=== PATIENT | male | born 1975 | race Caucasian/White ===

== ENCOUNTER 2018-05-11 11:19 | Emergency (ER) | payer BC, OTHER ==
[2018-05-11] MEDS ORDERED: NA CHLORIDE 0.9% 1,000 ML ONE (11:44)
[2018-05-11 12:12] LABS: Absolute Lymphocytes (CBC) 1.2 K/uL (0.7-4.9); Absolute Monocytes 0.4 K/uL (0.1-1.3); Absolute Neutrophil 2.2 K/uL (1.8-8.0); Basophils % 0.6 % (0-1.3); Eosinophils % 1.9 % (0-4.4); Hematocrit 45.3 % (39.6-49.0); Lymphocytes % 29.4 % (15.3-44.8); MPV 8.3 fL (7.6-11.3); Monocytes % 10.7 % (3.3-12.3); RBC Red Blood Cell Count 5.59 M/uL (4.33-5.43)
[2018-05-11 12:20] LABS: Bilirubin Direct 0.1 mg/dL (0-0.2); Bilirubin Total 0.5 mg/dL (0.2-1.0); Potassium 4.2 mmol/L (3.5-5.1); Protein, Total 7.3 g/dL (6.4-8.2)
--- NOTE | 2018-05-11 12:43 | EKG ---
Test Date: 2018-05-11 Test Time: 12:01:01 Lead Producer: NAHOMY MEASUREMENT RESULTS: Intervals: Rate: 55 NH: 172 QRSD: 84 QT: 426 QTc: 407 [place]: P: 52 NH: 172 QRS: 45 T: 51 INTERPRETIVE STATEMENTS: Sinus bradycardia Otherwise normal ECG No previous ECG available for comparison Electronically Signed On 05-11-18 12:38:03 DIRECTOR OF CONSUMER MARKETING by Ken Bray
[2018-05-11] MEDS ORDERED: KETOROLAC 30 MG/ML INJ ONE (12:59)
--- NOTE | 2018-05-11 13:21 | EDPHYS ---
Physician Documentation [facility] Name: Lio Barnhart Age: 42 yrs Sex: Male : 1975 Arrival Date: 05/11/2018 Time: 11:24 Bed 15 Private MD: ED Physician Bart Sykes HPI: 05/11 11:45 This 42 yrs old Male presents to ER via Ambulatory with complaints of snw Abdominal Pain. 11:45 The patient presents with abdominal pain in the epigastric area. Onset: The snw symptoms/episode began/occurred suddenly, at 10:00, and became persistent. The symptoms do not radiate. Associated signs and symptoms: none. The symptoms are described as sqeezing. Severity of pain: At its worst the pain was moderate severe just prior to arrival. The patient has not experienced similar symptoms in the past. The patient has not recently seen a physician. takes fish oil and vit C. Pt states he has been eating healthier and has recently lost 10-15 pounds. Historical: - Allergies: 11:32 No Known Allergies; ph - Home Meds: 11:32 None [Active]; ph - PMHx: 11:32 None; ph - PSHx: 11:32 None; ph - Immunization history:: Adult Immunizations unknown. - Social history:: Smoking status: Patient/guardian denies using tobacco. - Ebola Screening: : No symptoms or risks identified at this time. ROS: 11:44 Constitutional: Negative for fever, chills, and weight loss, Eyes: Negative for injury, snw pain, redness, and discharge, ENT: Negative for injury, pain, and discharge, Neck: Negative for injury, pain, and swelling, Cardiovascular: Negative for chest pain, palpitations, and edema, Respiratory: Negative for shortness of breath, cough, wheezing, and pleuritic chest pain, Back: Negative for injury and pain, : Negative for injury, bleeding, discharge, and swelling, MS/Extremity: Negative for injury and deformity, Skin: Negative for injury, rash, and discoloration, Neuro: Negative for headache, weakness, numbness, tingling, and seizure. 11:44 Abdomen/GI: Positive for abdominal pain, Negative for nausea, vomiting, and diarrhea. Exam: 11:44 Constitutional: This is a well developed, well nourished patient who is awake, alert, snw and in no acute distress. Head/Face: Normocephalic, atraumatic. Eyes: Pupils equal round and reactive to light, extra-ocular motions intact. Lids and lashes normal. Conjunctiva and sclera are non-icteric and not injected. Cornea within normal limits. Periorbital areas with no swelling, redness, or edema. ENT: Nares patent. No nasal discharge, no septal abnormalities noted. Tympanic membranes are normal and external auditory canals are clear. Oropharynx with no redness, swelling, or masses, exudates, or evidence of obstruction, uvula midline. Mucous membranes moist. Neck: Trachea midline, no thyromegaly or masses palpated, and no cervical lymphadenopathy. Supple, full range of motion without nuchal rigidity, or vertebral point tenderness. No Meningismus. Chest/axilla: Normal chest wall appearance and motion. Nontender with no deformity. No lesions are appreciated. Cardiovascular: Regular rate and rhythm with a normal S1 and S2. No gallops, murmurs, or rubs. Normal PMI, no JVD. No pulse deficits. Respiratory: Lungs have equal breath sounds bilaterally, clear to auscultation and percussion. No rales, rhonchi or wheezes noted. No increased work of breathing, no retractions or nasal flaring. Back: No spinal tenderness. No costovertebral tenderness. Full range of motion. Skin: Warm, dry with normal turgor. Normal color with no rashes, no lesions, and no evidence of cellulitis. MS/ Extremity: Pulses equal, no cyanosis. Neurovascular intact. Full, normal range of motion. Neuro: Awake and alert, GCS 15, oriented to person, place, time, and situation. Cranial nerves II-XII grossly intact. Motor strength 5/5 in all extremities. Sensory grossly intact. Cerebellar exam normal. Normal gait. Psych: Awake, alert, with orientation to person, place and time. Behavior, mood, and affect are within normal limits. 11:44 Abdomen/GI: Inspection: abdomen appears normal, Bowel sounds: normal, Palpation: mild abdominal tenderness, in the epigastric area. Vital Signs: 11:32 BP 128 / 101; Pulse 68; Resp 18; Temp 97.4; Pulse Ox 100% on R/A; Weight 96.16 kg; ph Height 6 ft. 1 in. (185.42 cm); Pain 3/10; 11:51 BP 139 / 93; Pulse 61; Resp 16 S; Pulse Ox 100% on R/A; Pain 4/10; jl7 13:37 BP 135 / 90; Pulse 65; Resp 16 S; Pulse Ox 100% on R/A; Pain 0/10; jl7 11:32 Body Mass Index 27.97 (96.16 kg, 185.42 cm) ph MDM: 11:33 Patient medically screened. snw 13:21 Data reviewed: vital signs, nurses notes. Data interpreted: Pulse oximetry: on room air snw is 100 %. Interpretation: normal. Counseling: I had a detailed discussion with the patient and/or guardian regarding: the historical points, exam findings, and any diagnostic results supporting the discharge/admit diagnosis, the presence of at least one elevated blood pressure reading (>120/80) during this emergency department visit, lab results, radiology results, the need for outpatient follow up, to return to the emergency department if symptoms worsen or persist or if there are any questions or concerns that arise at home. Response to treatment: the patient is now symptom free. Special discussion: Based on the history and exam findings, there is no indication for further emergent testing or inpatient evaluation. I discussed with the patient/guardian the need to see the primary care provider for further evaluation of the symptoms. 05/11 11:33 Order name: Basic Metabolic Panel; Complete Time: 12:44 snw 05/11 11:33 Order name: CBC with Diff; Complete Time: 12:17 snw 05/11 11:33 Order name: Hepatic Function; Complete Time: 12:44 snw 05/11 11:33 Order name: Lipase; Complete Time: 12:44 snw 05/11 11:40 Order name: Troponin (emerg Dept Use Only); Complete Time: 13:13 snw 05/11 11:40 Order name: US Abdomen Limited snw 05/11 11:33 Order name: IV Saline Lock; Complete Time: 11:50 snw 05/11 11:33 Order name: Labs collected and sent; Complete Time: 11:50 snw 05/11 11:34 Order name: EKG; Complete Time: 11:35 snw 05/11 11:34 Order name: EKG - Nurse/Tech; Complete Time: 13:01 snw Administered Medications: 11:50 Drug: NS 0.9% 1000 ml Route: IV; Rate: 1 bolus; Site: right antecubital; jl7 12:45 Follow up: Response: No adverse reaction; IV Status: Completed infusion jl7 12:53 Drug: TORadol 30 mg Route: IVP; Site: right antecubital; jl7 13:36 Follow up: Response: No adverse reaction jl7 Disposition: 16:02 Co-signature as Attending Physician, Bart Sykes MD I agree with the assessment and kdr plan of care. Disposition: 05/11/18 13:20 Discharged to Home. Impression: Epigastric pain. - Condition is Stable. - Discharge Instructions: Abdominal Pain, Adult, Gastritis, Adult. - Prescriptions for Protonix 40 mg Oral Tablet - take 1 tablet by ORAL route once daily; 30 tablet. - Work release form, Medication Reconciliation Form, Thank You Letter, Antibiotic Education, Prescription Opioid Use form. - Follow up: Private Physician; When: 2 - 3 days; Reason: Recheck today's complaints, Continuance of care, Re-evaluation by your physician. Follow up: Emergency Department; When: As needed; Reason: Worsening of condition. Signatures: Dispatcher [employer] EDAR Bart Sykes MD MD [facility] Dee Ovalle, LEAD EMBEDDED SOFTWARE ENGINEER-C LEAD EMBEDDED SOFTWARE ENGINEER-Csnw Yumiko Melchor, RN RN Corin Batres RN RN jl7 Corrections: (The following items were deleted from the chart) 13:38 13:20 05/11/2018 13:20 Discharged to Home. Impression: Epigastric pain. Condition is jl7 Stable. Forms are Medication Reconciliation Form, Thank You Letter, Antibiotic Education, Prescription Opioid Use. Follow up: Private Physician; When: 2 - 3 days; Reason: Recheck today's complaints, Continuance of care, Re-evaluation by your physician. Follow up: Emergency Department; When: As needed; Reason: Worsening of condition. snw
--- NOTE | 2018-05-11 13:21 | ER ---
Nurse's Notes [facility] Name: Lio Barnhart Age: 42 yrs Sex: Male : 1975 Arrival Date: 05/11/2018 Time: 11:24 Bed 15 Private MD: Diagnosis: Epigastric pain Presentation: 05/11 11:30 Presenting complaint: Patient states: Epigastric pain that started at 1000 today, ph denies radiation, also denies N/V/D, reports taking 4 Tums chewables [employer]EE[employer] w/ no relief of symptoms. Transition of care: patient was not received from another setting of care. Onset of symptoms was May 11, 2018. Risk Assessment: Do you want to hurt yourself or someone else? Patient reports no desire to harm self or others. Initial Sepsis Screen: Does the patient meet any 2 criteria? No. Patient's initial sepsis screen is negative. Does the patient have a suspected source of infection? No. Patient's initial sepsis screen is negative. Care prior to arrival: None. 11:30 Method Of Arrival: Ambulatory ph 11:30 Acuity: RADHA 3 ph Historical: - Allergies: 11:32 No Known Allergies; ph - Home Meds: 11:32 None [Active]; ph - PMHx: 11:32 None; ph - PSHx: 11:32 None; ph - Immunization history:: Adult Immunizations unknown. - Social history:: Smoking status: Patient/guardian denies using tobacco. - Ebola Screening: : No symptoms or risks identified at this time. Screenin:51 Abuse screen: Denies threats or abuse. Denies injuries from another. Nutritional jl7 screening: No deficits noted. Tuberculosis screening: No symptoms or risk factors identified. Fall Risk Fall in past 12 months (25 points). Total Mazariegos Fall Scale indicates No Risk (0-24 pts). Assessment: 11:51 General: Appears in no apparent distress. uncomfortable, Behavior is cooperative, jl7 anxious. Pain: Complains of pain in epigastric area Pain does not radiate. Pain currently is 4 out of 10 on a pain scale. at worst was 8 out of 10 on a pain scale. Quality of pain is described as squeezing, Pain began 2 hours ago. Is intermittent. Neuro: Level of Consciousness is awake, alert, obeys commands, Oriented to person, place, time, situation. Cardiovascular: Patient's skin is warm and dry. Respiratory: Airway is patent Respiratory effort is even, unlabored, Respiratory pattern is regular, symmetrical. GI: Bowel sounds present X 4 quads. Abd is soft X 4 quads Abd is non tender X 4 quads Abdomen is tender to palpation in epigastric area Guarding noted in epigastric area. : No signs and/or symptoms were reported regarding the genitourinary system. Derm: Skin is pink, warm \T\ dry. 12:50 Reassessment: Patient appears in no apparent distress at this time. Patient and/or jl7 family updated on plan of care and expected duration. Pain level reassessed. Patient is alert, oriented x 3, equal unlabored respirations, skin warm/dry/pink. Patient denies pain at this time. Vital Signs: 11:32 BP 128 / 101; Pulse 68; Resp 18; Temp 97.4; Pulse Ox 100% on R/A; Weight 96.16 kg; ph Height 6 ft. 1 in. (185.42 cm); Pain 3/10; 11:51 BP 139 / 93; Pulse 61; Resp 16 S; Pulse Ox 100% on R/A; Pain 4/10; jl7 13:37 BP 135 / 90; Pulse 65; Resp 16 S; Pulse Ox 100% on R/A; Pain 0/10; jl7 11:32 Body Mass Index 27.97 (96.16 kg, 185.42 cm) ph ED Course: 11:24 Patient arrived in ED. mr 11:29 Dee Ovalle FNP-C [facility]. snw 11:29 Bart Sykes MD is Attending Physician. snw 11:31 Triage completed. ph 11:32 Arm band placed on. ph 11:33 Corin Batres RN is Primary Nurse. jl7 11:51 Patient has correct armband on for positive identification. Placed in gown. Bed in low jl7 position. Call light in reach. Side rails up X 1. Pulse ox on. NIBP on. 11:51 Initial lab(s) drawn, by me, sent to lab. Inserted saline lock: 20 gauge in right jl7 antecubital area, using aseptic technique. Blood collected. 12:09 EKG done, by rehab technician. reviewed by Dee BLANCO. sm3 13:19 US Abdomen Limited In Process Unspecified. EDMS 13:19 Ultrasound completed. Patient moved back from ultrasound. lc3 13:37 No provider procedures requiring assistance completed. IV discontinued, intact, jl7 bleeding controlled, No redness/swelling at site. Pressure dressing applied. Administered Medications: 11:50 Drug: NS 0.9% 1000 ml Route: IV; Rate: 1 bolus; Site: right antecubital; jl7 12:45 Follow up: Response: No adverse reaction; IV Status: Completed infusion jl7 12:53 Drug: TORadol 30 mg Route: IVP; Site: right antecubital; jl7 13:36 Follow up: Response: No adverse reaction jl7 Outcome: 13:20 Discharge ordered by . abebe 13:37 Discharged to home ambulatory, with family. jl7 13:37 Condition: stable 13:37 Discharge instructions given to patient, family, Instructed on discharge instructions, follow up and referral plans. medication usage, Demonstrated understanding of instructions, follow-up care, medications, Prescriptions given X 1. 13:38 Patient left the ED. jl7 Signatures: Dispatcher [employer] EDMS Dee Ovalle, CELL FEED DEPARTMENT SUPERVISOR-C CELL FEED DEPARTMENT SUPERVISOR-Csnw Lela Ngo Yumiko Melchor RN RN Remy Colón Jahala, RN RN jl7 Mere Ibarra 3
--- NOTE | 2018-05-11 14:14 | RAD REPORT ---
EXAM DESCRIPTION: US - Abdomen Exam Limited - 05/11/2018 1:18 pm CLINICAL HISTORY: Epigastric pain COMPARISON: None. FINDINGS: No gallstones, sludge or other abnormalities within the gallbladder lumen. There is no wal l thickening or pericholecystic fluid. No common duct stone or biliary tree dilatation identified. IMPRESSION: Normal gallbladder and biliary tree ultrasound.
== END 2018-05-11 13:38 | disposition home or self-care (01) ==
LOC: ER 11:19
DX: R10.13 Epigastric pain (principal)
CPT/HCPCS: 36415; 76705; 80048; 80076; 83690; 84484; 85025; 93005; 96361; 96374; 99284; J7030

== ENCOUNTER 2022-01-02 09:10 | Emergency (ER) | payer BC ==
--- OUTSIDE RECORDS SUMMARY | 2022-01-02 09:13 | XMS REPORT | Continuity of Care Document ---
:1975 Author Organization [facility] t Address [address] [place] [address] Care Team Providers Name Role Phone Unavailable Unavailable Unavailable Payers Payer Name Policy Type Policy Number Effective Date Expiration Date S ource Problems This patient has no known problems. Allergies, Adverse Reactions, Alerts This patient has no known allergies or adverse reactions. Medications This patient has no known medications. Procedures This patient has no known procedures. Results Test Description Test Time Test Comments Results Result [facility] e Comments - MRI UP JN W/O 2019-01-06 Patient Name: CONT RT 11:14:00 ALEX POOLE Unit No: [id number] EXAMS: CPT CODE: [id number] MRI UP [facility] W/[place] [id number] [place] RIGHT SHOULDER WITHOUT CONTRAST DIAGNOSIS: 1. Irregular signal undermines the superior labrum compatible with a SLAP tear. 2. There is marked thickening of the inferior joint capsule with attenuation of the axillary recess compatible with adhesive capsulitis. 3. There is a partial-thickness interstitial tear central 3rd of the subscapularis tendon distally. Mild distal supraspinatus tendinosis. 4. 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 INDICATION: Left leg TECHNIQUE: Paracoronal fat sat T2, parasagittal T2 and fat sat T2 and axial T1 and fat-sat spin density sequences are obtained of the right shoulder without contrast. COMPARISON: None DISCUSSION: Osseous acromion outlet: The acromion is shallow type II, with mild lateral downsloping. Mild to moderate AC joint arthrosis is noted. Rotator cuff: Supraspinatus tendinosis. Partial-thickness interstitial tear subscapularis tendon. Infraspinatus and teres minor tendons are intact. Biceps tendon and anchor: The biceps anchor is intact. The biceps tendon is unremarkable, without evidence of dislocation. Labral and capsular structures: Superior labral abnormalities described. Osseous structures: No evidence of fracture or avascular necrosis. at 1114 Reported and signed by: Kaylee Ugarte MD CC: Anibal Lopez MD Technologist: Frank To,RT(R) Transcribed D/ (1114) [email or web address] [facility] NAME: ALEX POOLE [address] [place] [address] PHYS: RENATOAnibal Vee : 1975 AGE: 43 SEX: M [place] [id number] LOC: Y.MRI PHONE #: [phone] EXAM DATE: 01/06/2019 STATUS: REG CLI FAX #: [phone] RAD #: D/C DT PAGE 1 Signed Report Patient Name: ALEX POOLE Unit No: [id number] EXAMS: CPT CODE: [id number] MRI UP JNT W/[place] [id number] (Continued) Orig Print D/T: S: 01/06/2019 (1117) [facility] NAME: ALEX POOLE [address] [place] [address] PHYS: RENATOGINGERPa Anibal Schneider : 1975 AGE: 43 SEX: M [place] [id number] LOC: Y.MRI PHONE #: [phone] EXAM DATE: 01/06/2019 STATUS: REG CLI FAX #: [phone] RAD #: D/C DT PAGE 2 Signed Report
[2022-01-02 10:01] LABS: Absolute Lymphocytes (CBC) 0.9 K/uL (0.7-4.9); Hematocrit 44.6 % (39.6-49.0); Lymphocytes % 19.9 % (15.3-44.8); MCV 81.6 fL (80-100); MPV 7.8 fL (7.6-11.3); RBC Red Blood Cell Count 5.46 M/uL (4.33-5.43)
[2022-01-02 10:20] LABS: Albumin 4.1 g/dL (3.4-5.0); Bilirubin Total 0.8 mg/dL (0.2-1.0); Potassium 4.5 mmol/L (3.5-5.1); Protein, Total 7.4 g/dL (6.4-8.2)
--- NOTE | 2022-01-02 11:01 | RAD REPORT ---
EXAM DESCRIPTION: CT - Abdomen Pelvis W Contrast - 01/02/2022 10:45 am CLINICAL HISTORY: Left flank pain COMPARISON: No comparisons TECHNIQUE: Biphasic, helical CT imaging of the abdomen and pelvis was performed following 100 ml non -ionic IV contrast. No oral contrast administered. All CT scans are performed using dose optimization technique as appropriate and may include automated exposure control or mA/KV adjustment according to patient size. FINDINGS: No suspicious findings in the lung bases. The liver, spleen, and pancreas show no suspicious findings. Gallbladder and biliary tree are also wi thout suspicious finding. Mild left-sided hydronephrosis is present secondary to a 3 millimeter distal left ureteral stone appr oximately 5 cm from the UVJ. Pelvic floor phleboliths present. A 5 mm nonobstructing calyx calcificat ion present lower pole calyx on the left. No right-sided hydronephrosis. Obstructing stone causes del ayed function of the left kidney. No pyelonephritis or acute parenchymal process. No bladder abnormal ities. No adrenal abnormalities. No dilated bowel loops or bowel wall thickening. No free air, free fluid or inflammatory stranding. No hernia, mass or bulky lymphadenopathy. No suspicious bony findings. IMPRESSION: Mild left-sided hydronephrosis secondary to a 3 mm distal left ureteral calcification 5 cm from the bladder.
--- NOTE | 2022-01-02 11:14 | ER ---
Nurse's Notes [facility] Name: Lio Barnhart Age: 46 yrs Sex: Male : 1975 Arrival Date: 01/02/2022 Time: 09:13 Bed 9 Private MD: Albert Crane T Diagnosis: Calculus of ureter Presentation: 01/02 09:23 Chief complaint: Patient states: left flank pain since this morning. Coronavirus iw screen: At this time, the client does not indicate any symptoms associated with coronavirus-19. Ebola Screen: Patient negative for fever greater than or equal to 101.5 degrees Fahrenheit, and additional compatible Ebola Virus Disease symptoms Patient denies exposure to infectious person. Patient denies travel to an Ebola-affected area in the 21 days before illness onset. No symptoms or risks identified at this time. Onset of symptoms was January 02, 2022. 09:23 Method Of Arrival: Ambulatory iw 09:23 Acuity: RADHA 3 iw 09:45 Initial Sepsis Screen: Does the patient meet any 2 criteria? No. Patient's initial iw sepsis screen is negative. Does the patient have a suspected source of infection? No. Patient's initial sepsis screen is negative. Risk Assessment: Do you want to hurt yourself or someone else? Patient reports no desire to harm self or others. Triage Assessment: 12:40 General: Appears in no apparent distress. Behavior is calm, cooperative. iw Historical: - Allergies: 09:29 No Known Allergies; iw - PMHx: 09:29 None; iw Screenin:40 Abuse screen: Denies threats or abuse. Denies injuries from another. Nutritional iw screening: No deficits noted. Tuberculosis screening: No symptoms or risk factors identified. Fall Risk IV access (20 points). Assessment: 09:45 General: Appears in no apparent distress. Behavior is calm, cooperative. Pain: iw Complains of pain in left low back and right low back. Neuro: Level of Consciousness is awake, alert, obeys commands, Oriented to person, place, time, situation. Vital Signs: 09: BP 143 / 100; Pulse 64; Resp 16 S; Temp 97.6; Pulse Ox 100% on R/A; iw ED Course: 09:13 Patient arrived in ED. am2 09:14 Albert Crane MD is Private Physician. am2 09:20 Frank Lazo NP is PHCP. pm1 09:20 Abraham Blas DO is Attending Physician. pm1 09:24 Triage completed. iw 09:45 Arm band placed on. iw 09:50 Inserted saline lock: 20 gauge in left antecubital area, using aseptic technique. Blood kc6 collected. 09:50 CBC with Diff Sent. kc6 09:50 CMP Sent. kc6 09:50 Lipase Sent. kc6 10:47 CT Abd/Pelvis - IV Contrast Only In Process Unspecified. EDMS 11:35 Vivienne Tariq, RN is Primary Nurse. iw 12:40 No provider procedures requiring assistance completed. IV discontinued, intact, iw bleeding controlled, No redness/swelling at site. Pressure dressing applied. Administered Medications: 11:43 Drug: NS 0.9% 1000 ml Route: IV; Rate: 1 bolus; Site: left antecubital; iw 12:45 Follow up: IV Status: Completed infusion iw 12:25 Drug: Flomax (tamsulosin) 0.4 mg Route: PO; iw 12:45 Follow up: Response: No adverse reaction iw Outcome: 11:13 Discharge ordered by MD. pm1 12:40 Discharged to home ambulatory. iw 12:40 Condition: good 12:40 Discharge instructions given to patient, family, Instructed on discharge instructions, follow up and referral plans. Demonstrated understanding of instructions, follow-up care, medications, Prescriptions given X 2. 12:41 Patient left the ED. iw Signatures: Dispatcher [employer] EDMS Vivienne Tariq RN RN iw Frank Lazo NP IN [employer]ENS[employer] AIDE pm1 Ghazal Stern am2 Alexia Powell kc6 Corrections: (The following items were deleted from the chart) 09:26 09:25 Pulse Ox 100% RA; Temp 97.6F; iw iw 09:27 09:25 Pulse 64bpm; Resp 16bpm; Spontaneous; Pulse Ox 100% RA; Temp 97.6F; iw iw
--- NOTE | 2022-01-02 11:14 | EDPHYS ---
Physician Documentation [facility] Name: Lio Barnhart Age: 46 yrs Sex: Male : 1975 Arrival Date: 01/02/2022 Time: 09:13 Bed 9 Private MD: Albert Crane T ED Physician Abraham Blas HPI: 01/02 09:36 This 46 yrs old Male presents to ER via Ambulatory with complaints of Flank Pain - left pm1 side, Low Back Pain. 09:36 The patient complains of pain in the left low back. The pain does not radiate. Onset: pm1 The symptoms/episode began/occurred yesterday. Modifying factors: The symptoms are alleviated by nothing. the symptoms are aggravated by nothing. Associated signs and symptoms: Pertinent negatives: dysuria, fever, hematuria, nausea, vomiting. Severity of pain: in the emergency department the pain has improved. The patient has not experienced similar symptoms in the past. The patient has not recently seen a physician. 46-year-old male presents to the ER with complaints of left-sided flank pain onset yesterday. Pain comes and goes. Patient reports pain has improved today. Has been taking anti-inflammatories, ibuprofen 800mg for right-sided wrist pain along with his left-sided flank pain.. Historical: - Allergies: 09:29 No Known Allergies; iw - PMHx: 09:29 None; iw ROS: 09:36 Constitutional: Negative for fever, chills, and weight loss, Cardiovascular: Negative pm1 for chest pain, palpitations, and edema, Respiratory: Negative for shortness of breath, cough, wheezing, and pleuritic chest pain, Abdomen/GI: Negative for abdominal pain, nausea, vomiting, diarrhea, and constipation. 09:36 : Negative for injury, bleeding, discharge, and swelling, MS/Extremity: Negative for injury and deformity, Skin: Negative for injury, rash, and discoloration. 09:36 Back: Positive for flank pain, on the left, Negative for injury or acute deformity. 09:36 All other systems are negative. Exam: 09:36 Constitutional: This is a well developed, well nourished patient who is awake, alert, pm1 and in no acute distress. Head/Face: Normocephalic, atraumatic. 09:36 Skin: Warm, dry with normal turgor. Normal color with no rashes, no lesions, and no evidence of cellulitis. MS/ Extremity: Pulses equal, no cyanosis. Neurovascular intact. Full, normal range of motion. 09:36 Eyes: Exam is negative for acute changes, Extraocular movements: no acute changes, Conjunctiva: no acute changes, no injection. 09:36 ENT: Mouth: is normal, no acute changes, Lips: normal, moist, Oral mucosa: normal, pink and intact, moist. 09:36 Cardiovascular: Exam negative for acute changes, Rate: normal, Rhythm: regular, Pulses: no pulse deficits are appreciated. 09:36 Respiratory: Exam negative for acute changes, respiratory distress, shortness of breath. 09:36 Abdomen/GI: Inspection: abdomen appears normal, Palpation: abdomen is soft and non-tender, in all quadrants. 09:36 Back: Exam negative for acute changes, CVA tenderness, is absent, vertebral tenderness, is not appreciated. 09:36 Neuro: Exam negative for acute changes, Orientation: is normal, Mentation: is normal, Motor: is normal, moves all fours. Vital Signs: 09:25 BP 143 / 100; Pulse 64; Resp 16 S; Temp 97.6; Pulse Ox 100% on R/A; iw MDM: 09:20 Patient medically screened. pm1 09:31 ED course: Patient reports improvement in his pain. Patient offered pain medications pm1 and he refused. 09:33 Data reviewed: vital signs. Data interpreted: Pulse oximetry: on room air is 100 %. pm1 Interpretation: normal. 09:38 ED course: Patient did not want his wrist pain evaluated in the ER. had pm1 recommended possible x-ray of his right wrist. 11:11 Counseling: I had a detailed discussion with the patient and/or guardian regarding: the pm1 historical points, exam findings, and any diagnostic results supporting the discharge/admit diagnosis, lab results, radiology results, the need for outpatient follow up, a urologist, to return to the emergency department if symptoms worsen or persist or if there are any questions or concerns that arise at home. 11:11 ED course: pending patient to the ER room for IV fluids. pm1 01/02 09:31 Order name: CBC with Diff; Complete Time: 10:11 pm1 01/02 09:31 Order name: CMP; Complete Time: 10:31 pm1 01/02 09:31 Order name: Lipase; Complete Time: 10:31 pm1 01/02 09:31 Order name: CT Abd/Pelvis - IV Contrast Only; Complete Time: 11:04 pm1 01/02 09:31 Order name: IV Saline Lock; Complete Time: 09:50 pm1 01/02 09:31 Order name: Labs collected and sent; Complete Time: 09:50 pm1 Administered Medications: 11:43 Drug: NS 0.9% 1000 ml Route: IV; Rate: 1 bolus; Site: left antecubital; iw 12:45 Follow up: IV Status: Completed infusion iw 12:25 Drug: Flomax (tamsulosin) 0.4 mg Route: PO; iw 12:45 Follow up: Response: No adverse reaction iw Disposition: 01/03 10:53 Co-signature as Attending Physician, Abraham Blas DO I agree with the assessment and ms3 plan of care. Disposition Summary: 01/02/22 11:13 Discharge Ordered Location: Home pm1 Problem: new pm1 Symptoms: have improved pm1 Condition: Stable pm1 Diagnosis - Calculus of ureter pm1 Followup: pm1 - With: Emergency Department - When: As needed - Reason: Worsening of condition Followup: pm1 - With: Private Physician - When: 2 - 3 days - Reason: Recheck today's complaints, Continuance of care, Re-evaluation by your physician Discharge Instructions: - Discharge Summary Sheet pm1 - Kidney Stones pm1 - Dietary Guidelines to Help Prevent Kidney Stones pm1 Forms: - Medication Reconciliation Form pm1 - Thank You Letter pm1 - Antibiotic Education pm1 - Prescription Opioid Use pm1 Prescriptions: - Flomax 0.4 mg Oral capsule - take 1 capsule by ORAL route once daily for 10 days 1/2 hour following the same pm1 meal each day; 10 capsule; Refills: 0, Product Selection Permitted - Tylenol-Codeine #3 300 mg-30 mg Oral - take 2 tablet by ORAL route every 6 hours As needed; 20 tablet; Refills: 0, pm1 Product Selection Permitted Signatures: Dispatcher [employer] Vivienne Clifton RN RN iw Frank Lazo, ETHNOARCHAEOLOGIST ETHNOARCHAEOLOGIST pm1 Abraham Blas DO DO ms3
[2022-01-02] MEDS ORDERED: TAMSULOSIN 0.4 MG SR CAP ONE (11:49)
[2022-01-02] MEDS ORDERED: NA CHLORIDE 0.9% 1,000 ML ONE (11:49)
[2022-01-02 12:47] VITALS: BP 143/100; TEMP 97.6; O2SAT 100
== END 2022-01-02 12:41 | disposition home or self-care (01) ==
LOC: ER 09:10
DX: N20.1 Calculus of ureter (principal)
CPT/HCPCS: 85025; 36415; 83690; 80053; 74177; 96360; 99284; Q9967; J7030